=== PATIENT | female | born 1950 | race Two or more races ===

== ENCOUNTER 2019-08-10 07:40 | Outpatient (CLI) | payer OTHER | END 2019-08-10 08:09 | disposition home or self-care (01) | LOC: SONOGRAMA 07:40 | DX: E04.2 Nontoxic multinodular goiter (principal) ==

== ENCOUNTER 2019-11-12 09:35 | Emergency (ER) | payer OTHER ==
[~2019-11-12] VITALS: Ht 157.5 cm; Wt 81.6 kg
[2019-11-12] MEDS ORDERED: MICARDIS20 MG (09:49)
[2019-11-12] MEDS ORDERED: SYNTHROID100 MCG (09:50)
[2019-11-12] MEDS ORDERED: MICARDIS40 MG (09:51)
== END 2019-11-12 12:20 | disposition home or self-care (01) ==
LOC: ER 09:35
DX: J06.9 Acute upper respiratory infection, unspecified (principal)

== ENCOUNTER 2021-09-08 01:29 | Inpatient (IN) | payer OTHER ==
[~2021-09-08] VITALS: Ht 157.5 cm; Wt 78.9 kg
[~2021-09-08 01:29] MED LIST: MICARDIS20 MG; MICARDIS40 MG; SYNTHROID100 MCG
[2021-09-08] MEDS ORDERED: LIPITOR40 M1 (01:49)
--- NOTE | 2021-09-08 01:50 | NUR ---
SE RECIBE PTE ALERTA Y ORIENTADA X 3 ESFERAS AMBULANDO AL AREA DE TRIAGE LA CUAL INDICA QUE PRESENTA DOLOR DE PECHO EL CUAL IRRADIA A GARGANTA Y ESPALDA DESDE HACE ADRI HORA. REFIERE DOLOR DE JANIE. SE REALIZA EKG Y SE PRESENTA A . SE UBICA A PTE EN UNIDAD DE DOLOR DE PECHO, SE CONECTA A MONITOR CARDIACO Y OXIMETRIA DE PULSO.
--- NOTE | 2021-09-08 02:25 | NUR ---
SE RECIBE PTE FEMENINA ALERTA Y ORIENTADA X3,SIN FAMUILIAR SE COOCA EN CAMA #18 CPU POR ORDEN DE ,SE CONECTA A MONITOR CARDIA MEREDITH Y OXIMETROIA CONTINUA,ES EVALUADA POR EL CUAL REALIZA ORDENES Y SE ORIENTA A PTE SOBRE ORDEN MEDOICA,SE CHERYL MUESTRAS Y SE ENVIAN A LABORATORIO,SE CANALIZA Y COLOCA H/L PATENTE CARROL DE EDEMA Y ENROJECIMIENTO,SE COLOCA C/N A 2LTRS,SE REALIZA X RAY,SE COLOCA MEDICAMENTO EL CUSL PTE TOLERA. PTE REFIERE ALIVIO AL DOLOR POCO A POCO,SE MANTIENE A PTE EN VIGILANCIA MEREDITH POR CAMBIOS.
--- NOTE | 2021-09-08 06:14 | NUR ---
SE TYREL SENDA TROPONINA Y SE ENVIA A LABORATORIO Y SE NOTIFICA A
--- NOTE | 2021-09-08 07:10 | NUR ---
SE RECIBE PACIENTE DE TURNO ANTERIOR ALERTA Y ORIENTADA X3 CON BARANDAS ELEVADAS. IV PATENTE EN RA Y CANULA NASAL @3L. PACIENTE SE OBSERVA CON PREASIONES BAJAS POR LO QUE SE EL AJUSTA EL MEDICAMENTO. SE MANTIENE BAJO OBSERVACION.
[2021-09-09] MEDS ORDERED: MEDROLPACK PO (14:25)
== END 2021-09-09 15:00 | disposition home or self-care (01) | DRG 206 ==
LOC: ER 01:29 → SEC-K 11:29 → MEDJ 11:29
PROVIDERS: ADMIT Internal Medicine; ATTEND Internal Medicine
PROC: B24BZZZ Ultrasonography of Heart with Aorta (ICD-10-PCS; principal; 2021-09-08)
DX: M94.0 Chondrocostal junction syndrome [Tietze] (principal); R07.89 Other chest pain; I10 Essential (primary) hypertension; Z20.822 Contact with and (suspected) exposure to COVID-19; E03.8 Other specified hypothyroidism